=== PATIENT | male | born 1990 | race Caucasian/White ===

== ENCOUNTER 2018-08-22 02:08 | Emergency (ER) | payer SELFPAY ==
[~2018-08-22] VITALS: Ht 162.6 cm; Wt 69.9 kg
[2018-08-22 02:17] VITALS: Ht 162.6 cm; Wt 69.9 kg
[2018-08-22 03:21] VITALS: BP 124/79
== END 2018-08-22 03:23 | disposition home or self-care (01) ==
LOC: ED 02:08
DX: J06.9 Acute upper respiratory infection, unspecified (principal); E86.0 Dehydration

== ENCOUNTER 2019-10-29 17:01 | Emergency (ER) | payer MEDICAID ==
[~2019-10-29] VITALS: Ht 165.1 cm; Wt 72.6 kg
[2019-10-29 17:12] VITALS: Ht 165.1 cm; Wt 72.6 kg
[2019-10-29 18:33] VITALS: BP 119/89
== END 2019-10-29 18:33 | disposition home or self-care (01) ==
LOC: ED 17:01
DX: F15.129 Other stimulant abuse with intoxication, unspecified (principal); R00.0 Tachycardia, unspecified; F17.210 Nicotine dependence, cigarettes, uncomplicated
CPT/HCPCS: 87491; 87591; J0696